=== PATIENT | male | born 1980 | race Caucasian/White ===

== ENCOUNTER 2022-10-23 12:58 | Outpatient (CLI) | payer BC, SELFPAY ==
--- NOTE | 2022-10-23 13:00 | CRLHL7_ITS ---
For Patients: As a result of the Century Cures Act, medical imaging exams and procedure reports are released immediately into your electronic medical record. You may view this report before your referring provider. If you have questions, please contact your health care provider. INDICATION: Lumbar radiculitis. TECHNIQUE: Noncontrast sagittal and axial T1, T2, and sagittal STIR sequences are provided. No comparisons. FINDINGS: Mild anterolisthesis of L5 on S1 due to chronic bilateral L5 pars defects. The overall stature, alignment and intrinsic marrow signal within the remainder of the lumbar spine is within normal limits. Conus is normal. L5-S1: Mild unroofing of the intervertebral disc space is slightly worse on the right results in moderate to severe right and moderate left foraminal narrowing with compression of the exiting L5 nerve roots, right more so than left. There is a superimposed left posterior paracentral/lateral recess disc protrusion that extends 8 millimeters beyond the posterior vertebral body margin resulting in severe left lateral recess narrowing and compression of the traversing left S1 nerve root. Remainder of the lumbar spine is unremarkable, specifically no evidence of suspicious central canal or foraminal narrowing. IMPRESSION: 1. Mild anterolisthesis of L5 on S1 due to chronic bilateral L5 spondylolysis. There is resultant moderate to severe right and moderate left foraminal narrowing. A superimposed left posterior paracentral/lateral recess disc protrusion results in severe left lateral recess narrowing and compression of the traversing left S1 nerve root. Dictated by Baldemar Carson MD @ 10/23/2022 2:38:24 PM (Electronically Signed)
== END 2022-10-23 12:59 | disposition home or self-care (01) ==
LOC: MRI 12:59
PROVIDERS: PCP Family Medicine; Visit Provider Orthopaedic Surgery
DX: M54.16 Radiculopathy, lumbar region (principal); M51.27 Other intervertebral disc displacement, lumbosacral region
CPT/HCPCS: 72148

== ENCOUNTER 2023-04-06 14:15 | Outpatient (RCR) | payer BC, SELFPAY | END 2023-05-17 09:31 | disposition home or self-care (01) | PROVIDERS: PCP Family Medicine; Visit Provider Orthopaedic Surgery | DX: M54.16 Radiculopathy, lumbar region (principal); R29.3 Abnormal posture; M62.81 Muscle weakness (generalized); Z51.89 Encounter for other specified aftercare | CPT/HCPCS: 97110; 97161; 97530 ==

== ENCOUNTER 2025-03-04 21:43 | Emergency (ER) | payer BC, SELFPAY ==
--- OUTSIDE RECORDS SUMMARY | 2025-03-04 21:46 | XMS_ITS | Clinical Summary ---
Author Organization [facility] Address [address] [place] [id number] Care Team Providers Care Assistant Property Manager Name Role Phone Pcp, No Primary Care Provider Unavailabl e Allergies No known active allergies Medications medication order composer Omeprazole OTC 20 mg extended release capsules 0 0 Active CPAPIndications :MIGUEL (obstructive sleep apnea) New CPAP machine for home use at pressure: 5-10 cmw , Heated humidifier x 1 q 5 yr, Humidifier chamber x 1 q 6 mo, Full face mask x1 q 3mos, with cushion x 1 q mo, Heated tubing x 1 q 3 mo, Headgear x 1 q 6 mo, Filters: Disposable x 2 q mo non-disposable filters x1 q 6mo, Length of Need: 99 months, Frequency of use: Daily 1 Each 11 4 Active Active Problems Problem Noted Date Diagnosed Date MIGUEL on CPAP 11/03/2021 Contusion, chest wall 10/07/2009 Resolved Problems Problem Noted Date Diagnosed Date Resolved Date Closed fracture of one rib 10/07/2009 1 12/07/2008 Rib fractures 10/07/2009 10/07/2009 Immunizations Immunization Administration Dates Next Due COVID-19 vaccine (ZestyBio NTech 30mcg/0.3mL) 12YO+ LENARD-SUCROSE PF, MDV 01/07/2022 Influenza A (H1N1), Inactivated 10/18/2009 Influenza A (H1N1), Inactiva jada (Age >=3 Years) 10/18/2009 Influenza, IIV3 (Age >=3 years) 08/07/2013,08/26,08/29/2009 Influenza, IIV4 01/07/2022,01/16/2020,01/24/2018 Influenza, Injectable, Mdck, Quadrivalent, W/preservative 11/15/2018 MMR 03/11/1995,08/08/1980 Polio Virus, Unspecified 01/07/1983,08/08/1980 Td (Age >=7 Years) 03/11/1995 Tdap 02/08/2012 Family History Medical History Relation Name Comments Seizures Father Cancer Mother uterus Diabetes type II Mother Cancer-pancreatic Other uncle Peripheral vascular disease Paternal Grandfather Other Paternal Grandmother liver c ancer Relation Name Status Comments Father Alive Mother Alive Other Paternal Grandfather Paternal Grandmother Social History Tobacco Use Types Packs/Day Years Used Date Smoking Tobacco: Former Cigarettes Q uit: 11/29/2007 Smokeless Tobacco: Never Tobacco Cessation:Counseling Given: Yes Alcohol Use Standard Drinks/Week Comments Yes 0 (1 standard drink = 0.6 oz pur e alcohol) 1-3/day PHQ-2 Answer Date Recorded PHQ-2 Score 0 01/16/2020 Social Connections Answer Date Recorded Frequency of Communication with Friends and Fami ly Not on file 11/29/2021 Financial Resource Strain Answer Date R ecorded Difficulty of Paying Living Expenses Not on file 11/29/2021 Difficulty of Paying Living Expenses Not on file 11/29/2021 Sex and Gender Information Value Date Recorded Sex Assigned at Not on file Legal Sex Male 5:24 AM MEDIA RELATIONS DIRECTOR Gender Identity Not on file Sexual Orientation Not on file 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 Not on file Not on file Not on file Obstetrics History Last Filed Vital Signs Vital Sign Reading Time Taken Comments Blood Pressure 132/82 08/17/2022 11:30 AM CDT Pulse 87 08/17/2022 11:30 AM CDT Temperature 36.8 C (98.2 F) 08/17/2022 11:28 AM CDT Respiratory Rate 20 11/03/2021 9:28 AM MEDIA RELATIONS DIRECTOR Oxygen Saturation 97% 08/17/2022 11:28 AM CDT Inhaled Oxygen Concentration - - Weight 94.8 kg (209 lb) 12/29/2022 8:23 AM MEDIA RELATIONS DIRECTOR Height 177.8 cm (5' 10) 12/29/2022 8:23 AM MEDIA RELATIONS DIRECTOR Body Mass Index 29.99 12/29/2022 8:23 AM MEDIA RELATIONS DIRECTOR Plan of Treatment Health Maintenance Due Date Last Done Comments HIV for age 15-65 1993 Hepatitis C screening for age 18-79 1996 Depression screening for age 12+ 01/16/2021 01/16/2020, 01/24/2018 Tetanus booster 02/07/2022 02/08/2012, 01/27, 03/11/1995 Colonoscopy through age 75 2023 BMI (ht and wt on same day) for age 18+ 12/29/2023 12/29/2022, 11/03/2021, 01/16/2020, Additional history exists COVID-19 vaccine series ( season) 2024 01/07/2022, 04/11/2021, 03/21/2021 Lipids for age 45-75 01/16/2025 01/16/2020, 01/24/20 18 Influenza Vaccine (Season Ended) 2025 01/07/2022, 01/16/2020, 11/15/2018, Additional history exists Tdap Completed 02/08/2012 Pneumococcal series for age 6-49 Aged Out No longer eligible based on patient's age to complete this topic Procedures Procedure Name Priority Date/Time Associated Diagnosis Comments LIPID PANEL W REFLEX MEASURED LDL Routine 01/16/2020 12:24 PM MEDIA RELATIONS DIRECTOR Routine general medical examination at a health care facility from Last 3 Months or Most Recently Relevant to Health Maintenance Results * (ABNORMAL) LIPID PANEL W REFLEX MEASURED LDL (01/16/2020 12:24 PM MEDIA RELATIONS DIRECTOR) CHOLESTEROL,TOTAL 229(H) 100 - 199 mg/dL 01/16/2020 6:02 PM MEDIA RELATIONS DIRECTOR [facility] TRIGLYCERIDES 143 <150 mg/dL 01/16/2020 6:02 PM MEDIA RELATIONS DIRECTOR [facility] HDL CHOLESTEROL 51 >40 mg/dL 0 6:02 PM MEDIA RELATIONS DIRECTOR [facility] NON-HDL CHOLESTEROL 178(H) <145 mg/dl 01/16/2020 6:02 PM MEDIA RELATIONS DIRECTOR [facility] CHOL/HDL RATIO 4.49 <4.50 01/16/2020 6:02 PM MEDIA RELATIONS DIRECTOR [facility] LDL CHOLESTEROL 149(H) <=130 mg/dL 01/16/2020 6:02 PM MEDIA RELATIONS DIRECTOR [facility] PROVIDER ORDERED STATUS RANDOM 01/16/2020 6:02 PM MEDIA RELATIONS DIRECTOR [facility] Blood BLOOD SPECIMEN / Unknown Venipuncture / Unknown 01/16/2020 12:24 PM MEDIA RELATIONS DIRECTOR 01/16/2020 12:24 PM MEDIA RELATIONS DIRECTOR us Dalton Cordoba MD CHEMISTRY Final Re sult [facility] [address] [place] [address], from Last 3 Months or Most Recently Relevant to Health Maintenance Insurance [facility] [employer] COMP Member Subscriber Plan / Payer (Ef fective 2009-Present) Name:Fer Ruiz Tiffanie Member ID:[id number] Relation to Subscriber:Self Name:Fer Ruiz Subscriber ID:[id number] Payer ID:Not on file Group ID:Not on file Type:Not on file Address: [place] [address] Care Teams Assistant Property Manager Relationship Specialty Start Date End Date Pcp, No . PCP - General 04/25/24
[2025-03-04 21:49] VITALS: BP 152/92; PULSE 84; RESP 18; TEMP 36.3; O2SAT 96; BMI 30.1
--- NOTE | 2025-03-04 22:34 | CRLHL7_ITS ---
For Patients: As a result of the Century Cures Act, medical imaging exams and procedure reports are released immediately into your electronic medical record. You may view this report before your referring provider. If you have questions, please contact your health care provider. Indication: Intermittent right testicular pain x3 months. Technique: Ultrasound of the scrotum and contents. Sonographic kramer-scale images were obtained with spectral and color Doppler waveform and spectral waveform analysis of the testicles. Comparison: None. Findings: Both testicles are normal in size and echotexture. No masses. No suspicious calcifications. Arterial and venous color Doppler blood flow and spectral waveforms are present in both testicles. Epididymis: Left epididymal head cyst measuring 4 x 3 x 3 mm. Normal blood flow. Other: Small right hydrocele. No sign of varicocele. Scrotal wall is unremarkable. Impression: No definite acute findings. No evidence of torsion. Small right hydrocele Dictated by Matteo Flores MD @ 03/04/2025 11:43:08 PM (Electronically Signed)
[2025-03-04 22:46] LABS: Appearance Urine Clear (Clear); Bilirubin Urine Negative (Negative); Blood Urine Negative (Negative); Color Urine Yellow (Yellow); Glucose Urine Negative (Negative); Ketones Urine Trace (Negative); Leukocyte Esterase Urine Negative (Negative); Nitrite Urine Negative (Negative); Protein Urine Negative (Negative); Specific Gravity Urine >= 1.030 (1.000-1.030)
[2025-03-04 23:06] LABS: Bacteria Urine Few; RBC Urine 0-2 (0-2); Squamous Epithelial Cell Urine Few (None-Few); WBC Urine 0-2 (0-5)
--- NOTE | 2025-03-04 23:08 | ED_ITS ---
HPI - Abdominal Pain General Date Seen: 03/04/25 Chief Complaint: Unspecified Complaint, Adult Stated Complaint: right testicle pain Time Seen by Provider: 03/04/25 22:16 Source: patient and family Mode of arrival: ambulatory Limitations: no limitations History of Present Illness HPI narrative: Patient is a 44-year-old gentleman who presents here with his family with a history of right-sided testicle pain he has had for number of months, but worse in the last few weeks. He describes as achiness in his right testicle and almost feeling like there is something swollen there. He has noted no change in size of his testicle, is not taking any medications for this is not set sought medical care for this at all. Denies a past history of any significant issues, no abdominal surgeries no fevers no chills no weight loss no history of cancer. Denies any cough cold-like symptoms dysuria frequency history of STDs he is here today with his . Denies a history of hematuria. Pertinent past history: none Migration to: no migration Associated symptoms: denies other symptoms Related Data Home Medications ?Medication ?Instructions ?Recorded ?Confirmed omeprazole magnesium 20 mg 20 mg PO DAILY 03/04/25 03/04/25 tablet,delayed release (Prilosec OTC) Allergies Allergy/AdvReac Type Severity Reaction Status Date / Time No Known Drug Allergies Allergy Verified 03/04/25 21:53 Review of Systems Status of ROS Reports: 10 or more systems reviewed and unremarkable except as noted in History and below PFSH PFS Social History Smoking Status: Former smoker How often do you have a drink containing alcohol: 2-3 times a week How many standard drinks containing alcohol do you have on a typical day: 3 or 4 AUDIT-C Alcohol total score: 4 Non-prescribed substance use: denies use Exam Narrative: Exam Narrative: On examination he is in no apparent distress his abdomen is soft slightly obese there is no guarding no organomegaly right testicle is a little bit more tender than the left but there is no masses noted, he has no groin all masses also. No CVA tenderness. Circumcised, no penile discharge is noted. I do not detect a hernia. Const: Vital Signs, click to edit/add: Vital Signs - 24 hr 03/04/25 21:49 Temperature 97.3 F L Pulse Rate [Left P ulse Oximeter] 84 Respiratory Rate 18 Blood Pressure [Ri ght Upper Arm] 152/92 H Pulse Oximetry 96 Oxygen Delivery Me thod Room Air Documenting provider has reviewed patient's vital signs: yes Course Course ED Course: Patient's ultrasound was negative except for a small hydrocele I reassured him, he should follow-up with urology as needed he can take some ibuprofen for the discomfort. Urinalysis was also further negative Vital Signs Vital signs: Initial Vital Signs Temperature 97.3 F L 03/04/25 21:49 Temperature Source Temporal Artery Scan 03/04/25 21:49 Pulse Rate 84 03/04/25 21:49 Pulse Rhythm Regular 03/04/25 21:49 Respiratory Rate 18 03/04/25 21:49 Blood Pressure 152/92 H 03/04/25 21:49 Blood Pressure Mean 112 H 03/04/25 21:49 Blood Pressure Position Sitting 03/04/25 21:49 Pulse Oximetry 96 03/04/25 21:49 Oxygen Delivery Method Room Air 03/04/25 21:49 Vital Signs Temperature 97.3 F L 03/04/25 21:49 Pulse Rate 84 03/04/25 21:49 Respiratory Rate 18 03/04/25 21:49 Blood Pressure 152/92 H 03/04/25 21:49 Pulse Oximetry 96 03/04/25 21:49 Oxygen Delivery Method Room Air 03/04/25 21:49 Temperature 97.3 F L 03/04/25 21:49 Pulse Rate 84 03/04/25 21:49 Respiratory Rate 18 03/04/25 21:49 Blood Pressure 152/92 H 03/04/25 21:49 Pulse Oximetry 96 03/04/25 21:49 Oxygen Delivery Method Room Air 03/04/25 21:49 MDM - Abdominal Pain MDM Narrative Medical decision making narrative: During this evaluation of this patient I considered multiple differential diagnosis is which included the life-threatening such as appendicitis, aortic aneurysm, mesenteric ischemia, bowel perforation, volvulus, and bowel obstruction. Other differential diagnosis is include but are not limited to cho lecystitis, pancreatitis, hepatitis, gastritis, GERD, diverticulitis, peptic ulcer disease, pyelonephritis/UTI, renal colic/stone, testicular torsion as well as other acute scrotal processes, inflammatory bowel disease, as well as other etiologies Will do an ultrasound any UA. Medical Records Attestation: I reviewed the patient's medical records. Lab Data Attestation: I reviewed the patient's lab results. Labs: Lab Results 03/04/25 Range/Units 22:40 Urine Color Yellow (Yellow) Urine Appearance Clear (Clear) Urine pH 6.0 (5.0-8.5) Ur Specific [place] >= 1.030 (1.000-1.030) Urine Protein Negative (Negative) Urine Glucose (UA) Negative (Negative) Urine Ketones Trace A (Negative) Urine Blood Negative (Negative) Urine Nitrite Negative (Negative) Urine Bilirubin Negative (Negative) Urine Urobilinogen 1.0 (0.2-1.0) Ur Leukocyte Esterase Negative (Negative) Urine RBC 0-2 (0-2) Urine WBC 0-2 (0-5) Ur Squamous Epith Cells Few (None-Few) Urine Bacteria Few A (None) Imaging Data Testicle ultrasound: Attestation: I have reviewed the pertinent imaging results. My impression: No evidence of abnormality Radiologist's impression: [place] [address] Diagnostic Imaging Report Patient: Fer Ruiz MR#: [id number] : 1980 Acct:[id number] Loc: ED Service Date: 03/04/[address]: Ordering Physician: Viraj Greenberg M.D. Date of Service: 03/04/25 Procedure(s): US scrotum Accession Number(s): [id number] cc: Viraj Greenberg M.D.; Dalton Cordoba M.D.~ For Patients: As a result of the Century Cures Act, medical imaging exams and procedure reports are released immediately into your electronic medical record. You may view this report before your referring provider. If you have questions, please contact your health care provider. Indication: Intermittent right testicular pain x3 months. Technique: Ultrasound of the scrotum and contents. Sonographic kramer-scale images were obtained with spectral and color Doppler waveform and spectral waveform analysis of the testicles. Comparison: None. Findings: Both testicles are normal in size and echotexture. No masses. No suspicious calcifications. Arterial and venous color Doppler blood flow and spectral waveforms are present in both testicles. Epididymis: Left epididymal head cyst measuring 4 x 3 x 3 mm. Normal blood flow. Other: Small right hydrocele. No sign of varicocele. Scrotal wall is unremarkable. Impression: No definite acute findings. No evidence of torsion. Small right hydrocele Dictated by Matteo Flores MD @ 03/04/2025 11:43:08 PM Discharge Plan Discharge Clinical Impression: Pain in testicle, Hydrocele in adult Patient Disposition: Home w/ Parent or Adult Condition: Stable Instructions: Testicle Pain (ED), Scrotal Pain (ED) Additional Instructions: Home rest use of ibuprofen 800 mg up to 3 times a day, follow-up with urology if ongoing signs and symptoms but the good news is there is no mass no signs of torsion or any other issue associated with the right testicle. Activity Level: Light activity Prescriptions: No Action omeprazole magnesium [Prilosec OTC] 20 mg tablet,delayed release (DR/EC) 20 mg PO DAILY Follow Up/Referrals: Dalton Cordoba MD [Primary Care Provider] - Stand Alone Forms: [employer] [facility] [employer] Info Instructions
--- OUTSIDE RECORDS SUMMARY | 2025-03-04 23:38 | XMS_ITS | Clinical Summary ---
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 on file Not on file Not on file Obstetrics History Last Filed Vital Signs Vital Sign Reading Time Taken Comments Blood Pressure 132/82 08/17/2022 11:30 AM CDT Pulse 87 08/17/2022 11:30 AM CDT Temperature 36.8 C (98.2 F) 08/17/2022 11:28 AM CDT Respiratory Rate 20 11/03/2021 9:28 AM CINDER CRUSHER OPERATOR Oxygen Saturation 97% 08/17/2022 11:28 AM CDT Inhaled Oxygen Concentration - - Weight 94.8 kg (209 lb) 12/29/2022 8:23 AM CINDER CRUSHER OPERATOR Height 177.8 cm (5' 10) 12/29/2022 8:23 AM CINDER CRUSHER OPERATOR Body Mass Index 29.99 12/29/2022 8:23 AM CINDER CRUSHER OPERATOR Plan of Treatment Health Maintenance Due Date [...] REFLEX MEASURED LDL Routine 01/16/2020 12:24 PM CINDER CRUSHER OPERATOR Routine general medical examination at a health care facility from Last 3 Months or Most Recently Relevant to Health Maintenance Results * (ABNORMAL) LIPID PANEL W REFLEX MEASURED LDL (01/16/2020 12:24 PM CINDER CRUSHER OPERATOR) CHOLESTEROL,TOTAL 229(H) 100 - 199 mg/dL 01/16/2020 6:02 PM CINDER CRUSHER OPERATOR [facility] TRIGLYCERIDES 143 <150 mg/dL 01/16/2020 6:02 PM CINDER CRUSHER OPERATOR [facility] HDL CHOLESTEROL 51 >40 mg/dL 0 6:02 PM CINDER CRUSHER OPERATOR [facility] NON-HDL CHOLESTEROL 178(H) <145 mg/dl 01/16/2020 6:02 PM CINDER CRUSHER OPERATOR [facility] CHOL/HDL RATIO 4.49 <4.50 01/16/2020 6:02 PM CINDER CRUSHER OPERATOR [facility] LDL CHOLESTEROL 149(H) <=130 mg/dL 01/16/2020 6:02 PM CINDER CRUSHER OPERATOR [facility] PROVIDER ORDERED STATUS RANDOM 01/16/2020 6:02 PM [address]IND[address]HER [address] [facility] Blood BLOOD SPECIMEN / Unknown Venipuncture / Unknown 01/16/2020 12:24 PM CINDER CRUSHER OPERATOR 01/16/2020 12:24 PM CINDER CRUSHER OPERATOR us Dalton Cordoba MD CHEMISTRY Final Re sult [facility] [address] [place] [address], from Last 3 Months or Most Recently Relevant to Health Maintenance Insurance [facility] [employer] COMP Member Subscriber Plan / Payer (Ef fective 2009-Present) Name:eFr Ruiz Tiffanie Member ID:[id number] Relation to Subscriber:Self Name:eFr Ruiz Subscriber ID:[id number] Payer ID:Not on file Group ID:Not on file Type:Not on file Address: [place] [address] Care Teams Web Analytics Developer Relationship Specialty Start Date End Date Pcp, No . PCP - General 04/25/24
== END 2025-03-05 00:24 | disposition home or self-care (01) ==
PROVIDERS: Emergency Provider Family Medicine; PCP Family Medicine
DX: N50.811 Right testicular pain (principal); N43.3 Hydrocele, unspecified
CPT/HCPCS: 76870; 81001; 87086; 93976; 99283